=== PATIENT | male | born 1960 | race Hispanic/Latino ===

== ENCOUNTER → 2018-09-10 | Outpatient (CLI) | payer BC ==
[~2018-09-10] MED LIST: LEVAQUIN500 MG PO; TYLENOL WITH C1 EACH PO
--- NOTE | 2018-09-10 09:40 | Diagnostic Imaging Report ---
PROCEDURE: X-RAY BARIUM ENEMA WITH AIR CONTRAST COMPARISON: CT scan of the abdomen and pelvis dated 01/22/2018 INDICATIONS: History of a diverticulitis with abscess formation and a colostomy. TECHNIQUE: Website Project Manager film was obtained. Barium was introduced via a rectal tube in a retrograde fashion. Air insufflation was accomplished. Barium was administered in the left colostomy until it reached the cecum then followed by air insufflation. Multiple spot images as well as overhead and bilateral decubitus images were obtained. FINDINGS: The oiler and greaser film demonstrates no acute abnormalities. There is no evidence of obstruction, mass or intraluminal filling defects. Moderate diverticulosis of the left colon without evidence of diverticulitis. Scattered diverticula throughout the remainder of the transverse colon and proximal descending colon to the level of the ostomy. No significant diverticula in the remaining sigmoid colon or rectum. The appendix is visualized. Fluoroscopy time: 2.0 minutes Total dose: 102.34 mGy Cumulative air kerma: 57.003 Gycm2 CONCLUSION: Diverticulosis as described above. Russ Hussein D.O. Dictated by: Russ Hussein D.O. on 09/10/2018 at 9:51 Electronically approved by: Russ Hussein D.O. on 09/10/2018 at 9:51
== END ==
LOC: DX 07:26
PROVIDERS: ATTEND Surgery
DX: K57.92 Diverticulitis of intestine, part unspecified, without perforation or abscess without bleeding (principal)
CPT/HCPCS: 74280

== ENCOUNTER 2018-10-14 06:12 | Inpatient (IN) | payer BC ==
[2018-10-11 08:36] LABS: BASOPHILS % 0.7 % (0.0-1.0); EOSINOPHILS # (AUTO) 0.1 (0.0-0.4); EOSINOPHILS % 2.2 % (0.0-6.0); HEMATOCRIT 43.8 % (38.2-49.6); HEMOGLOBIN 14.9 g/dL (14.0-18.0); LYMPHOCYTES # (AUTO) 1.2 (1.0-3.2); LYMPHOCYTES % 26.9 % (18.0-39.1); MEAN CORPUSCULAR HEMOGLOBIN 33.2 pg (28-32); MEAN CORPUSCULAR VOLUME 97.6 fL (81-99); MONOCYTES # (AUTO) 0.4 (0.2-0.8); MONOCYTES % 9.1 % (4.4-11.3); NEUTROPHILS # (AUTO) 2.7 (2.1-6.9); NEUTROPHILS % 60.9 % (38.7-80.0); PLATELET COUNT 82 x10e3/uL (140-360); RED BLOOD COUNT 4.49 x10e6/uL (4.3-5.7)
[2018-10-11 08:52] LABS: BLOOD UREA NITROGEN 12 mg/dL (7-26); BUN/CREATININE RATIO 15 (6-25); CALCIUM 9.2 mg/dL (8.4-10.2); CARBON DIOXIDE 24 mmol/L (22-29); CHLORIDE 103 mmol/L (98-107); CREATININE, SERUM 0.79 mg/dL (0.72-1.25); EST GLOMERULAR FILTRATION RATE > 60 ML/MIN (60-); GLUCOSE 114 mg/dL (74-118); SODIUM 140 mmol/L (136-145)
[~2018-10-14] VITALS: Ht 170.2 cm; Wt 65.4 kg
[2018-10-14] VITALS (7 sets, daily range): BP systolic 110–129; BP diastolic 73–81
[2018-10-14] MEDS ORDERED: HYDROMORPHONE 2MG/ML 2 MG/ML ML ONE ×2 (08:25→13:31)
[2018-10-14] MEDS ORDERED: MINERAL OIL STERILE 10ML VIAL ONE (09:54)
[2018-10-14] MEDS ORDERED: NALOXONE HCL INJ 0.4 MG/ML AMP IV PRN (13:15)
[2018-10-14] MEDS: SODIUM CHLORIDE 0.9% 250ML IRRIG IR SCH ×3 (13:15→23:05)
[2018-10-14] MEDS ORDERED: PROMETHAZINE HCL (IM) 25 MG/ML VIAL IV PRN (13:15)
[2018-10-14] MEDS ORDERED: ACETAMINOPHEN 1000 MG/100 ML IV PRN (13:15)
[2018-10-14] MEDS ORDERED: HYDROMORPHONE 0.2MG/ML-SOD CHL 30ML PCA SYRINGE IV ONE (13:30)
[2018-10-14] MEDS ORDERED: PROMETHAZINE 12.5MG/ NACL 0.9% 50 ML IV PRN (13:30)
[2018-10-14] MEDS: HYDROMORPHONE 0.2MG/ML-SOD CHL 30ML PCA SYRINGE IV PRN ×4 (13:37→20:43)
[2018-10-14] MEDS: PANTOPRAZOLE 40 MG 10ML VIAL IV SCH (14:00)
[2018-10-14] MEDS: CEFOXITIN 1GM/ NS 50ML 50 ML IV SCH ×2 (14:00→21:03)
--- NOTE | 2018-10-14 14:06 | Operative Report ---
DATE OF PROCEDURE: October 14, 2018 PREOPERATIVE DIAGNOSIS: History of perforated sigmoid diverticulitis, status post end colostomy and Cristy's procedure. POSTOPERATIVE DIAGNOSES 1. History of perforated sigmoid diverticulitis, status post end colostomy and Cristy's procedure. 2. Extensive intra-abdominal adhesions. OPERATION PERFORMED 1. Exploratory laparotomy. 2. Low anterior colon resection with takedown of colostomy, closure of colostomy and mobilization of the splenic flexure. 3. Extensive lysis of adhesions. ANESTHESIA: General. COMPLICATIONS: None. ESTIMATED BLOOD LOSS: 300 mL. DESCRIPTION OF PROCEDURE: With the patient lying in bed in the supine position, under good general anesthesia, with the legs up in stirrups, the abdomen and perineum were prepped with Betadine solution and draped in the usual manner. The left upper quadrant colostomy was then isolated with drapes, and an elliptical incision was made around the colostomy. The colostomy was lifted all the way down to the fascia and from the fascia and from the peritoneum. The colostomy was then stapled shut with a 75 DIOGO stapler. After this was done, the colostomy was then dropped into the intra-abdominal cavity. Gloves and instruments were changed. The colostomy site was isolated from the rest of the wounds. A midline incision was then made and carried down through the subcutaneous tissue and through the midline fascia. The peritoneum was opened, and the abdomen was entered. Upon entering the abdominal cavity, extensive adhesions were encountered from the patient's previous severe peritonitis and abscess in the left lower quadrant. All of the small bowel was then slowly and carefully from all of the adhesions and run from one end to the other from the ligament of Treitz to the terminal ileum. This was all then completely . The sigmoid colon had become stuck in the old abscess cavity in the anterior abdominal wall, and it had to be slowly and carefully mobilized from this area and brought down to the intra-abdominal position. After this was done, the sigmoid colon was then slowly and carefully taken down all the way down to the rectosigmoid junction using the Enseal device. The rectosigmoid junction was then divided with another application of DIOGO 75 stapler. The specimen was sent for pathological examination. At this point, the proximal colon was then slowly and carefully brought down. There was a lot of adhesions in the upper abdomen and the left side because of the previous perforations. Nonetheless all of the bowel was mobilized, and the splenic flexure was brought down with the Enseal device. The colon was then divided at the level of the distal transverse colon with a DIOGO 75 stapler, and the left colon was sent for pathological examination. The transverse colon was then mobilized so that it would reach the pelvis without any difficulty, and the excess of the omentum was similarly resected. After this was done, hemostasis was ascertained. The proximal staple line was then removed, and a 33 EEA anvil was placed into the proximal colon and sutured in place with a pursestring suture of 2-0 Prolene. At this point we went from below and dilated the anus and the rectum. The 33 EEA stapler was then placed transanally and brought out right through the anterior portion of the staple line in the rectosigmoid junction. The stapler and anvil were then joined, and the stapler was slowly and carefully closed and then fired. Two perfect doughnuts were obtained. Gloves and instruments were then changed. The abdomen was then copiously irrigated. Hemostasis was ascertained. The anastomosis was further reinforced with some 3-0 silk sutures. The hole of the previous abscess in the left lower quadrant was then closed from inside with a running suture of #1 Vicryl approximating the muscle layer in this area. Patient has known that he will very likely develop a hernia in this area, and he has been told so from the very previous operation. After this was done, the colostomy site was then closed from inside with a running suture of #1 Vicryl. The abdomen was then closed in layers. Peritoneum was closed with a running suture of #1 Vicryl. The midline fascia was closed with a running suture of #1 PDS, and the skin was closed with clips. The colostomy site fascia was then closed with [id number] of #1 Vicryl. Subcutaneous tissue was approximated with 3-0 Vicryl. A 1/4-inch [place] drain was left in the colostomy site, and the skin was closed with interrupted vertical mattress sutures of 2-0 nylon and clips. Dressings were applied. The sponge, lap and needle count was correct. Patient tolerated the procedure well and returned to the recovery room in stable condition. Job#: [id number]
[2018-10-14] MEDS ORDERED: ROCURONIUM BROMIDE 10 MG/ML 5ML VIAL ONE (14:38)
[2018-10-14] MEDS ORDERED: CEFOXITIN SOD 1 GM VIAL ONE (14:38)
[2018-10-14] MEDS ORDERED: PROPOFOL IV EMULSION 10 MG/ML 20 ML VIAL ONE (14:38)
[2018-10-14] MEDS ORDERED: DEXAMETHASONE SOD PHOS INJ 4 MG/ML VIAL ONE (14:38)
[2018-10-14] MEDS ORDERED: SEVOFLURANE INHAL SOLN 250 ML PEN BTL ONE (14:38)
[2018-10-14] MEDS ORDERED: NEOSTIGMINE 5 MG/5ML SYR ONE (14:38)
[2018-10-14] MEDS ORDERED: ONDANSETRON HCL INJ 2MG/ML 2ML 2 MG/ML VIAL ONE (14:38)
[2018-10-14] MEDS ORDERED: LIDOCAINE HCL 2% LOCAL INJ 5 ML SDV VIAL INJ ONE (14:38)
[2018-10-14] MEDS ORDERED: ACETAMINOPHEN 1000 MG/100 ML IV ONE (14:38)
[2018-10-14] MEDS ORDERED: GLYCOPYRROLATE INJ 1MG/ 5 ML SYR ONE (14:38)
[2018-10-14] MEDS ORDERED: ACETAMINOPHEN 1000 MG/100 ML 100 ML IV ONE (16:30)
[2018-10-14] MEDS ORDERED: MIDAZOLAM HCL 2 MG/2 ML VIAL ONE (17:51)
[2018-10-14] MEDS ORDERED: FENTANYL CITRATE/PF 100MCG/2 ML INJ ONE (17:51)
--- NOTE | 2018-10-14 18:00 | NUR ---
Patient received from [facility] and is alert and Ox4. Respirations are even and unlabored. Abdominal dressing is dry and intact and covered with abdominal dressing. V/S are stable. Says he has minimal pain and is on Dilaudid IV pump with continous basal rate and is tolerating well.
--- NOTE | 2018-10-14 18:35 | NUR ---
Dr. Christopher Lozano here to see patient
[2018-10-14] MEDS: DEXTROSE 5%/LACTATED RINGERS 1,000 ML IV SCH ×2 (20:40→21:02)
[2018-10-15] VITALS (22 sets, daily range): BP systolic 105–160; BP diastolic 62–98
[2018-10-15] MEDS: SODIUM CHLORIDE 0.9% 250ML IRRIG IR SCH ×6 (04:03→21:24)
[2018-10-15] MEDS ORDERED: CEFOXITIN 1GM/ NS 50ML 50 ML IV ONE ×2 (04:15→04:19)
[2018-10-15 05:11] LABS: BASOPHILS % 0.2 % (0.0-1.0); HEMATOCRIT 31.6 % (38.2-49.6); HEMOGLOBIN 10.7 g/dL (14.0-18.0); LYMPHOCYTES # (AUTO) 0.7 (1.0-3.2); LYMPHOCYTES % 3.6 % (18.0-39.1); MEAN CORPUSCULAR HEMOGLOBIN 33.4 pg (28-32); MEAN CORPUSCULAR HGB CONC 33.9 g/dL (31-35); MEAN CORPUSCULAR VOLUME 98.8 fL (81-99); MONOCYTES # (AUTO) 1.3 (0.2-0.8); MONOCYTES % 6.9 % (4.4-11.3); NEUTROPHILS # (AUTO) 16.9 (2.1-6.9); NEUTROPHILS % 88.7 % (38.7-80.0); PLATELET COUNT 81 x10e3/uL (140-360); RED CELL DISTRIBUTION WIDTH 11.9 % (11.7-14.4)
[2018-10-15] MEDS: DEXTROSE 5%/LACTATED RINGERS 1,000 ML IV SCH ×3 (05:24→22:34)
[2018-10-15 05:38] LABS: ANION GAP 13.2 mmol/L (8-16); BLOOD UREA NITROGEN 10 mg/dL (7-26); BUN/CREATININE RATIO 13 (6-25); CALCIUM 7.9 mg/dL (8.4-10.2); CARBON DIOXIDE 23 mmol/L (22-29); CHLORIDE 102 mmol/L (98-107); CREATININE, SERUM 0.78 mg/dL (0.72-1.25); EST GLOMERULAR FILTRATION RATE > 60 ML/MIN (60-); GLUCOSE 175 mg/dL (74-118); POTASSIUM 4.2 mmol/L (3.5-5.1); SODIUM 134 mmol/L (136-145)
[2018-10-15] MEDS: PANTOPRAZOLE 40 MG 10ML VIAL IV SCH (09:29)
[2018-10-15] MEDS: KETOROLAC TROMETHAMINE 30 MG/ML VIAL IV PRN (15:51)
[2018-10-15] MEDS ORDERED: ACETAMINOPHEN 1000 MG/100 ML IV PRN (19:15)
[2018-10-15] MEDS: HYDROMORPHONE 0.2MG/ML-SOD CHL 30ML PCA SYRINGE IV PRN (19:54)
[2018-10-15] MEDS: CEFTRIAXONE SOD 1 GM/NS 50 ML 50 ML IV SCH (20:32)
[2018-10-15] MEDS ORDERED: DIAZEPAM 5 MG TAB PO PRN (21:30)
[2018-10-16] VITALS (19 sets, daily range): BP systolic 85–144; BP diastolic 56–84
[2018-10-16] MEDS: KETOROLAC TROMETHAMINE 30 MG/ML VIAL IV PRN ×2 (00:11→13:54)
[2018-10-16] MEDS: SODIUM CHLORIDE 0.9% 250ML IRRIG IR SCH ×6 (02:56→21:15)
[2018-10-16 05:03] LABS: BASOPHILS % 0.1 % (0.0-1.0); HEMATOCRIT 25.8 % (38.2-49.6); HEMOGLOBIN 8.9 g/dL (14.0-18.0); LYMPHOCYTES % 13.9 % (18.0-39.1); MEAN CORPUSCULAR HGB CONC 34.5 g/dL (31-35); MEAN CORPUSCULAR VOLUME 98.5 fL (81-99); MONOCYTES # (AUTO) 0.6 (0.2-0.8); MONOCYTES % 7.4 % (4.4-11.3); NEUTROPHILS # (AUTO) 5.8 (2.1-6.9); NEUTROPHILS % 78.5 % (38.7-80.0); PLATELET COUNT 50 x10e3/uL (140-360); RED BLOOD COUNT 2.62 x10e6/uL (4.3-5.7); RED CELL DISTRIBUTION WIDTH 12.5 % (11.7-14.4)
[2018-10-16 05:33] LABS: ANION GAP 9.5 mmol/L (8-16); BLOOD UREA NITROGEN 5 mg/dL (7-26); BUN/CREATININE RATIO 7 (6-25); CALCIUM 7.9 mg/dL (8.4-10.2); CARBON DIOXIDE 28 mmol/L (22-29); CHLORIDE 103 mmol/L (98-107); CREATININE, SERUM 0.68 mg/dL (0.72-1.25); EST GLOMERULAR FILTRATION RATE > 60 ML/MIN (60-); GLUCOSE 123 mg/dL (74-118); POTASSIUM 3.5 mmol/L (3.5-5.1); SODIUM 137 mmol/L (136-145)
[2018-10-16] MEDS: DEXTROSE 5%/LACTATED RINGERS 1,000 ML IV SCH ×3 (08:14→18:31)
[2018-10-16] MEDS: HYDROMORPHONE 0.2MG/ML-SOD CHL 30ML PCA SYRINGE IV PRN ×2 (09:38→21:53)
[2018-10-16] MEDS: PANTOPRAZOLE 40 MG 10ML VIAL IV SCH (09:57)
--- NOTE | 2018-10-16 10:53 | NUR ---
Dr Jose Martin Tyson to bedside; orders rec'd.
[2018-10-16] MEDS ORDERED: CHLORASEPTIC SPRAY 177 ML BTL MM PRN (11:00)
--- NOTE | 2018-10-16 18:28 | NUR ---
Dr Aranza Lozano to bedside; NGT removed per order, House Sup informed patient okay to move to Med Surg with routine vital signs, no need for telemetry or continuous pulse oximetry.
[2018-10-16] MEDS: CEFTRIAXONE SOD 1 GM/NS 50 ML 50 ML IV SCH (18:49)
--- NOTE | 2018-10-16 19:00 | NUR ---
Report received from Susan Ramsey RN. Pt received AAOx4, 2L nc rr 12 spo2 100% no signs of distress noted, COMPUTERIZED MILL RECORDER (refer to financial consultant paper chart), pt reports tolerable pain level of 2 at this time in his throat and has cholraseptic spray per md order, forbes to gravity with yellow clear urine, IVF infusing in right hand at 100ml/hr wdp.
--- NOTE | 2018-10-16 19:45 | NUR ---
Report called to Macrina RAYMOND on med/surg 1. transferred to room 110 with assistance from Charge nurse Renu Bermudez RN. No signs of distress noted after transfer. Macrina RAYMOND now in pts room and assuming care of the pt.
--- NOTE | 2018-10-16 19:48 | NUR ---
RECEIVED PT BY HOSPITAL BED, AAOX3, RR EVEN AND NON-LABORED, O2 BY NC AT 2L. DRESSING TO ANTERIOR ABD NOTED TO BE CDI. CREPE MAKER PUMP FOR PAIN MANAGEMENT. CREPE MAKER BUTTON WITHIN REACH. LEROY INTACT DRAINING TO BEDSIDE BAG. LEFT PT LAYING SEMI FOWLERS IN BED, BED IN LOW LOCKED POSITION, SIDE RAILS UPX3, CALL LIGHT AND PHONE WITHIN REACH.
[2018-10-16] MEDS: BISACODYL 10 MG SUPP PR SCH (21:53)
[2018-10-17] VITALS (7 sets, daily range): BP systolic 110–182; BP diastolic 57–78
--- NOTE | 2018-10-17 00:06 | NUR ---
ORDER CLARIFICATION CALLED TO MD Christopher WATKNIS CONCERNING ORDER TO D/C LEROY. RECEIVED IN REPORT THAT LEROY WAS TO STAY IN PER MD WATKINS. WAS INFORMED BY MD Christopher WATKINS THAT LEROY WAS DISCONTINUED ON 10/16/18 IN THE AM AND PT WAS UNABLE TO URINATE. SO LEROY WAS RE-INSERTED. ORDERS TO KEEP LEROY. ORDER CLARIFICATION FOR TELEMETRY ORDER, NO TELEMETRY UPON ARRIVAL TO FLOOR AND RECEIVED IN REPORT NO ORDER FOR TELEMETRY. ORDER NOTED FROM THE 18TH FOR PT TO BE ON TELEMETRY. REQUESTS TELEMETRY TO BE APPLIED TO PT PER ORDER.
--- NOTE | 2018-10-17 00:14 | NUR ---
TELEMETRY BOX 21 APPLIED TO PT.
[2018-10-17] MEDS: DEXTROSE 5%/LACTATED RINGERS 1,000 ML IV SCH (00:22)
--- NOTE | 2018-10-17 03:00 | NUR ---
PT REPORTS FEELING BLOATED. ASSISTED PT TO AMBULATE IN [facility], STEADY GAIT NOTED. LEFT PT SITTING IN HARD BACK CHAIR IN ROOM.
--- NOTE | 2018-10-17 05:20 | NUR ---
IV TO (R) HAND NOTED TO BE LEAKING. IV DISCONTINUED. CATHETER TIP INTACT. PRESSURE AND DRESSING APPLIED. NEW IV STARTED TO (L) FA 20G. FLUSHES WITHOUT DIFFICULTY, BLOOD RETURN NOTED.
[2018-10-17] MEDS: KETOROLAC TROMETHAMINE 30 MG/ML VIAL IV PRN (05:53)
[2018-10-17 06:15] LABS: ALANINE AMINOTRANSFERASE 37 IU/L (0-55); ALBUMIN 3.4 g/dL (3.5-5.0); ALKALINE PHOSPHATASE 64 IU/L (40-150); ANION GAP 13.8 mmol/L (8-16); BLOOD UREA NITROGEN < 5 mg/dL (7-26); CALCIUM 8.7 mg/dL (8.4-10.2); CARBON DIOXIDE 28 mmol/L (22-29); CHLORIDE 99 mmol/L (98-107); CREATININE, SERUM 0.69 mg/dL (0.72-1.25); EST GLOMERULAR FILTRATION RATE > 60 ML/MIN (60-); GLUCOSE 133 mg/dL (74-118); SODIUM 138 mmol/L (136-145)
[2018-10-17 06:33] LABS: BUN/CREATININE RATIO 7 (6-25)
[2018-10-17 06:34] LABS: POTASSIUM 2.8 mmol/L (3.5-5.1)
--- NOTE | 2018-10-17 06:34 | NUR ---
MD Christopher WATKINS PAGED CONCERNING ABNORMAL POTASSIUM LEVEL. WAITING FOR CALLBACK.
[2018-10-17 07:32] LABS: BASOPHILS % 0.3 % (0.0-1.0); EOSINOPHILS % 0.5 % (0.0-6.0); HEMATOCRIT 25.8 % (38.2-49.6); HEMOGLOBIN 8.6 g/dL (14.0-18.0); LYMPHOCYTES # (AUTO) 0.7 (1.0-3.2); LYMPHOCYTES % 10.4 % (18.0-39.1); MEAN CORPUSCULAR HEMOGLOBIN 33.1 pg (28-32); MEAN CORPUSCULAR HGB CONC 33.3 g/dL (31-35); MEAN CORPUSCULAR VOLUME 99.2 fL (81-99); MONOCYTES # (AUTO) 0.5 (0.2-0.8); MONOCYTES % 7.5 % (4.4-11.3); NEUTROPHILS # (AUTO) 5.2 (2.1-6.9); NEUTROPHILS % 80.8 % (38.7-80.0); PLATELET COUNT 57 x10e3/uL (140-360); RED CELL DISTRIBUTION WIDTH 12.1 % (11.7-14.4)
[2018-10-17] MEDS: BISACODYL 10 MG SUPP PR SCH (08:00)
[2018-10-17] MEDS: LACTATED RINGERS IV SCH ×2 (10:15→19:12)
[2018-10-17] MEDS: PANTOPRAZOLE 40 MG 10ML VIAL IV SCH (10:15)
[2018-10-17] MEDS: DEXTROSE IV SCH ×2 (10:15→19:12)
[2018-10-17] MEDS: POTASSIUM CHLORIDE IV SCH ×2 (10:15→19:12)
--- NOTE | 2018-10-17 12:47 | NUR ---
METAL ORGAN PIPE MAKER PUMP AND LEROY DC AT THIS TIME PER DR. Christopher WATKINS ORDERS
[2018-10-17] MEDS ORDERED: HYDROMORPHONE 2MG/ML 2 MG/ML ML IV PRN (13:00)
--- NOTE | 2018-10-17 13:13 | NUR ---
CASE MANAGEMENT ASSESSMENT Rotary Engine Assembler to bedside to discuss plan of care with patient/family. CM/SW role and care transitions discussed. Anticipated discharge plan discussed along with duration of care. CM/SW discussed patients right to make decisions in care. CM/SW work hours given. Patient lives: alone Admit/Transfer: from PACU Hospital/ER visits since last admit: last admitted January 2018 POA/Emergency contact: Son Alessandro Gonzalez [phone] Current/Previous Home Health: States he previously had home health, but does not remember the name of the company; states he does not need it now PCP/Follow-up Care: Dr. Jose Martin Tyson; advised pt to follow up with a MD within 7 days of discharge; pt states he "sees Dr. Tyson all the time" Current/Previous DME: none Medications (referring to index hospitalization or the first time you were in the hospital) a. Were changes made in your medications when you were in the hospital on January 2018? yes, discharged on abx b. Did you understand the changes? yes c. Were you able to obtain your new medications right away? yes d. Were you able to take your medications like the doctor wanted you to? yes e. Did the hospital give you an accurate, easy to understand list of medications when you left? yes Scale of 1-10 how comfortable does patient feel with disease management in outpatient settin Other Services: none Employment Status: employed with [employer] Areas of Concerns: none Referral Needs: none Education Needs: medical management IMM/CANDELARIO given and signed (if applicable): n/a Goal for discharge: home independently CM/SW left business card at the bedside with contact information. Name and number was also written on the patients whiteboard. Patient verbalized understanding of discussion. CM will follow-up with ongoing discharge and transition of care needs.
--- NOTE | 2018-10-17 14:28 | NUR ---
CLEAR YELLOW URINE VOIDED BY PT AT THIS TIME, NO C/O OF BURNING OR IRRITATION DURING URINATION
[2018-10-17] MEDS: HYDROCODONE/APAP 7.5MG-325MG 1 EA TAB PO PRN ×2 (17:25→21:30)
[2018-10-17] MEDS: CEFTRIAXONE SOD 1 GM/NS 50 ML 50 ML IV SCH (19:57)
[2018-10-18] VITALS (7 sets, daily range): BP systolic 113–139; BP diastolic 54–74
[2018-10-18] MEDS: DEXTROSE 5%/LACTATED RINGERS 1,000 ML IV SCH (06:10)
[2018-10-18 06:53] LABS: BASOPHILS % 0.5 % (0.0-1.0); EOSINOPHILS # (AUTO) 0.1 (0.0-0.4); EOSINOPHILS % 3.2 % (0.0-6.0); HEMATOCRIT 25.5 % (38.2-49.6); HEMOGLOBIN 8.6 g/dL (14.0-18.0); LYMPHOCYTES # (AUTO) 0.6 (1.0-3.2); LYMPHOCYTES % 12.7 % (18.0-39.1); MEAN CORPUSCULAR HEMOGLOBIN 33.6 pg (28-32); MEAN CORPUSCULAR HGB CONC 33.7 g/dL (31-35); MEAN CORPUSCULAR VOLUME 99.6 fL (81-99); MONOCYTES # (AUTO) 0.5 (0.2-0.8); MONOCYTES % 12.2 % (4.4-11.3); NEUTROPHILS # (AUTO) 3.1 (2.1-6.9); NEUTROPHILS % 70.9 % (38.7-80.0); PLATELET COUNT 70 x10e3/uL (140-360); RED BLOOD COUNT 2.56 x10e6/uL (4.3-5.7); RED CELL DISTRIBUTION WIDTH 12.2 % (11.7-14.4)
[2018-10-18 07:10] LABS: ANION GAP 10.2 mmol/L (8-16); BLOOD UREA NITROGEN < 5 mg/dL (7-26); CALCIUM 8.2 mg/dL (8.4-10.2); CARBON DIOXIDE 25 mmol/L (22-29); CHLORIDE 106 mmol/L (98-107); CREATININE, SERUM 0.64 mg/dL (0.72-1.25); EST GLOMERULAR FILTRATION RATE > 60 ML/MIN (60-); GLUCOSE 132 mg/dL (74-118); POTASSIUM 3.2 mmol/L (3.5-5.1); SODIUM 138 mmol/L (136-145)
[2018-10-18 07:11] LABS: BUN/CREATININE RATIO 8 (6-25)
[2018-10-18] MEDS: PANTOPRAZOLE SOD 40 MG TABEC PO SCH (07:29)
[2018-10-18] MEDS: HYDROCODONE/APAP 7.5MG-325MG 1 EA TAB PO PRN ×3 (07:30→20:03)
--- NOTE | 2018-10-18 10:46 | NUR ---
Rounds by attending and orders for KCL 40meq IV x1 and will monitor
--- NOTE | 2018-10-18 10:57 | NUR ---
Patient alert and responsive, OOB and ambulating within his room, VSS and no c/o pains, rounds by attending and started on full liq diet, will monitor.
[2018-10-18] MEDS ORDERED: POTASSIUM CHLORIDE 20MEQ/100ML 200 ML IV ONE (11:00)
[2018-10-18] MEDS: CEFTRIAXONE SOD 1 GM/NS 50 ML 50 ML IV SCH (20:03)
--- NOTE | 2018-10-18 20:05 | NUR ---
DRESSING DRY AND INTACT TO THE ABDOMEN WITHOUT DRAINAGE OR BLEEDING, PATIENT C/O PAIN TO THE ABDOMEN WITH PAIN SCORE #4. MEDICATED WITH NORCO 1TAB ORDERED, CALL LIGHT WITHIN EASY REACH, INSTRUCTED TO CALL FOR ASSISTANCE NEEDED.
[2018-10-19] VITALS (7 sets, daily range): BP systolic 121–142; BP diastolic 65–84
--- NOTE | 2018-10-19 00:15 | NUR ---
PATIENT LYING IN BED, NO RESPIRATORY DISTRESS OBSERVED. C/O MILD PAIN TO THE ABDOMEN WITH PAIN SCORE #1, HE STATES HE DOES NOT WANT PAIN MEDICATION AT THIS TIME.
[2018-10-19] MEDS: DEXTROSE 5%/LACTATED RINGERS 1,000 ML IV SCH (01:30)
[2018-10-19] MEDS: HYDROCODONE/APAP 7.5MG-325MG 1 EA TAB PO PRN ×4 (02:30→23:10)
--- NOTE | 2018-10-19 02:30 | NUR ---
PATIENT C/O PAIN TO THE ABDOMEN WITH PAIN SCORE #5, MEDICATED WITH NORCO 1TAB ORDERED. CALL LIGHT WITHIN EASY REACH, INSTRUCTED TO CALL FOR ASSISTANCE NEEDED.
--- NOTE | 2018-10-19 04:35 | NUR ---
PATIENT AMBULATING IN THE [facility] AT THIS TIME.
[2018-10-19 06:25] LABS: ANION GAP 9.5 mmol/L (8-16); BLOOD UREA NITROGEN < 5 mg/dL (7-26); CALCIUM 8.4 mg/dL (8.4-10.2); CARBON DIOXIDE 25 mmol/L (22-29); CHLORIDE 105 mmol/L (98-107); CREATININE, SERUM 0.65 mg/dL (0.72-1.25); EST GLOMERULAR FILTRATION RATE > 60 ML/MIN (60-); GLUCOSE 121 mg/dL (74-118); POTASSIUM 3.5 mmol/L (3.5-5.1); SODIUM 136 mmol/L (136-145)
[2018-10-19 06:26] LABS: BUN/CREATININE RATIO 8 (6-25)
[2018-10-19] MEDS: PANTOPRAZOLE SOD 40 MG TABEC PO SCH (07:14)
--- NOTE | 2018-10-19 08:39 | NUR ---
Patient medicated this morning for abdominal pain, dressing in place to abd, had breakfast full liquid diet and tolerated well, no N/V reported, OOB and ambulating hallway and will monitor.
--- NOTE | 2018-10-19 15:23 | NUR ---
Patient with low grade temp and call to surgeon at this time for orders
[2018-10-19] MEDS ORDERED: ACETAMINOPHEN 325 MG TAB PO PRN (15:30)
--- NOTE | 2018-10-19 15:31 | NUR ---
Call from surgeon and orders in place for CBC and APAP PRN for fever, orders in place
[2018-10-19 16:22] LABS: BASOPHILS % 0.3 % (0.0-1.0); EOSINOPHILS # (AUTO) 0.2 (0.0-0.4); EOSINOPHILS % 3.5 % (0.0-6.0); HEMATOCRIT 30.6 % (38.2-49.6); HEMOGLOBIN 10.3 g/dL (14.0-18.0); LYMPHOCYTES # (AUTO) 1.1 (1.0-3.2); LYMPHOCYTES % 16.9 % (18.0-39.1); MEAN CORPUSCULAR HEMOGLOBIN 33.1 pg (28-32); MEAN CORPUSCULAR HGB CONC 33.7 g/dL (31-35); MEAN CORPUSCULAR VOLUME 98.4 fL (81-99); MONOCYTES % 15.2 % (4.4-11.3); NEUTROPHILS % 63.8 % (38.7-80.0); PLATELET COUNT 89 x10e3/uL (140-360); RED BLOOD COUNT 3.11 x10e6/uL (4.3-5.7); RED CELL DISTRIBUTION WIDTH 12.6 % (11.7-14.4)
--- NOTE | 2018-10-19 18:07 | NUR ---
Temp rechecked and at 98.7 from 100.1, states he feels better.
--- NOTE | 2018-10-19 19:00 | NUR ---
Report received and rounds completed, no complaints or concerns at this time. Sitting up to bedside chair watching TV.
--- NOTE | 2018-10-19 20:00 | NUR ---
Dr Lozano here and changed dressing to abdomen. Tolerated well.
[2018-10-19] MEDS: CEFTRIAXONE SOD 1 GM/NS 50 ML 50 ML IV SCH (20:30)
[2018-10-20] VITALS: BP 121/70
--- NOTE | 2018-10-20 00:30 | NUR ---
In bed in low semi-folwer position, no complains or concerns at this time. Will continue to monitor. Call light within reach.
[2018-10-20 00:31] VITALS: BP 121/70
[2018-10-20] MEDS: DEXTROSE 5%/LACTATED RINGERS 1,000 ML IV SCH (00:58)
[2018-10-20 04:00] VITALS: BP 129/66
[2018-10-20] MEDS: HYDROCODONE/APAP 7.5MG-325MG 1 EA TAB PO PRN ×3 (04:25→14:31)
[2018-10-20 06:07] LABS: BASOPHILS % 0.3 % (0.0-1.0); EOSINOPHILS # (AUTO) 0.2 (0.0-0.4); HEMATOCRIT 29.4 % (38.2-49.6); HEMOGLOBIN 9.7 g/dL (14.0-18.0); LYMPHOCYTES % 16.4 % (18.0-39.1); MEAN CORPUSCULAR HEMOGLOBIN 32.9 pg (28-32); MEAN CORPUSCULAR VOLUME 99.7 fL (81-99); MONOCYTES # (AUTO) 0.8 (0.2-0.8); MONOCYTES % 12.7 % (4.4-11.3); NEUTROPHILS # (AUTO) 3.9 (2.1-6.9); NEUTROPHILS % 66.1 % (38.7-80.0); PLATELET COUNT 107 x10e3/uL (140-360); RED BLOOD COUNT 2.95 x10e6/uL (4.3-5.7); RED CELL DISTRIBUTION WIDTH 12.3 % (11.7-14.4)
--- NOTE | 2018-10-20 07:02 | NUR ---
Walking rounds done and report received. Patient is up in room, denies any pain or discomfort at this time. Patient instructed to call for assistance as needed and verbalized understanding.
[2018-10-20] MEDS: PANTOPRAZOLE SOD 40 MG TABEC PO SCH (08:24)
[2018-10-20 09:16] VITALS: BP 149/74
[2018-10-20 12:00] VITALS: BP 155/70
[2018-10-20] MEDS ORDERED: KCL 20MEQ/.9 SOD CHL 1,000 ML IV SCH (15:00)
[2018-10-20 16:22] VITALS: BP 128/79
--- NOTE | 2018-10-20 17:37 | NUR ---
Dr. Lozano making rounds at the bedside. Per MD patient may go home today. Attending Dr. Joyce Tyson called regarding discharge.
[2018-10-20] MEDS ORDERED: TYLENOL WITH C1 EACH PO (17:47)
[2018-10-20] MEDS ORDERED: LEVAQUIN500 MG PO (17:47)
--- NOTE | 2018-10-20 18:25 | NUR ---
Patient discharge home after Dr. Joyce Tyson was agreeable to discharge. Written instructions and prescriptions given and patient verbalized understanding.
== END 2018-10-20 18:37 | disposition home or self-care (01) | DRG 331 ==
LOC: OR 06:12 → PACU V 13:04 → ICU 18:06 → MED/SURG 10-16 19:50
PROVIDERS: ADMIT Surgery; ATTEND Surgery
PROC: 0DBM0ZZ Excision of Descending Colon, Open Approach (ICD-10-PCS; 2018-10-14)
PROC: 0DSL0ZZ Reposition Transverse Colon, Open Approach (ICD-10-PCS; principal; 2018-10-14 08:36)
PROC: 0DBN0ZZ Excision of Sigmoid Colon, Open Approach (ICD-10-PCS; 2018-10-14 08:36)
DX: Z43.3 Encounter for attention to colostomy (principal); K57.30 Diverticulosis of large intestine without perforation or abscess without bleeding; Z01.810 Encounter for preprocedural cardiovascular examination; Z01.812 Encounter for preprocedural laboratory examination; K66.0 Peritoneal adhesions (postprocedural) (postinfection); D64.9 Anemia, unspecified; E87.6 Hypokalemia; D69.6 Thrombocytopenia, unspecified; R41.0 Disorientation, unspecified
CPT/HCPCS: 36415; 80048; 80053; 83735; 85025; 86850; 86900; 88307; 93005; 96367; J0694; J0696; J1100; J1885; J2001; J2250; J2405; J3480

== ENCOUNTER → 2019-09-29 | Outpatient (CLI) | payer BC ==
--- NOTE | 2019-09-29 09:40 | Diagnostic Imaging Report ---
EXAM: US ABDOMEN COMPLETE INDICATION: Abnormal LFTs. COMPARISON: None TECHNIQUE: Transverse and longitudinal guy scale and color doppler sonographic images of the abdomen were obtained. FINDINGS: LIVER 15.4 cm in the right midclavicular line. Increased echogenicity of the liver with normal contour, no masses. SPLEEN 10.9 cm in maximum diameter. Normal echogenicity, no masses. GALLBLADDER Gallbladder sludge. No gallbladder wall thickening, distension, stone, or pericholecystic fluid. Negative reported sonographic Clarke's sign. BILE DUCTS No intra nor extra-hepatic biliary dilation. Common bile duct measures 0.2 cm PANCREAS: Not well evaluated. RIGHT KIDNEY: 11.0 cm Echogenicity: Normal Collecting System: No hydronephrosis Stones: None Cyst/Mass: None LEFT KIDNEY: 10.9 cm Echogenicity: Normal Collecting System: No hydronephrosis Stones: None Cyst/Mass: None VESSELS: Aorta: Not well evaluated. Inferior Vena Cava: Visualized portions are normal Main Portal Vein: 1.0 cm, normal size with hepatopetal flow. FREE FLUID: None IMPRESSION: Hepatic steatosis. Liver measures at the upper limits of normal. Gallbladder sludge without sonographic evidence of cholecystitis. Signed by: Dr. Arnel Barragan MD on 09/29/2019 9:38 AM
== END ==
LOC: US 08:05
PROVIDERS: ATTEND Internal Medicine
DX: R74.8 Abnormal levels of other serum enzymes (principal)
CPT/HCPCS: 76700

== ENCOUNTER → 2021-07-05 | Outpatient (CLI) | payer OTHER | LOC: MRI 07:03 | PROVIDERS: ATTEND Internal Medicine | DX: M17.11 Unilateral primary osteoarthritis, right knee (principal); S83.203S Other tear of unspecified meniscus, current injury, right knee, sequela; M47.816 Spondylosis without myelopathy or radiculopathy, lumbar region | CPT/HCPCS: 72110 ==